=== PATIENT | female | born 1955 | race Two or more races ===

== ENCOUNTER 2024-10-04 18:06 | Emergency (ER) | payer OTHER ==
[~2024-10-04] VITALS: Ht 121.9 cm; Wt 54.4 kg
[2024-10-04] MEDS ORDERED: SODI14.12 TP (18:44)
[2024-10-04 21:02] VITALS: BP 149/92; TEMP 98; O2SAT 98
== END 2024-10-04 21:00 ==
LOC: ER 18:09
DX: R04.0 Epistaxis (principal); I10 Essential (primary) hypertension; E03.9 Hypothyroidism, unspecified; E78.00 Pure hypercholesterolemia, unspecified; Z86.16 Personal history of COVID-19; Z86.718 Personal history of other venous thrombosis and embolism

== ENCOUNTER 2024-12-30 12:52 | Emergency (ER) | payer OTHER ==
[~2024-12-30] VITALS: Ht 152.4 cm; Wt 56.7 kg
[~2024-12-30 12:52] MED LIST: SODI14.12 TP
[2024-12-30 17:04] VITALS: BP 143/94; TEMP 98.2; O2SAT 95
== END 2024-12-30 17:05 ==
LOC: ER 13:12
DX: S80.02XA Contusion of left knee, initial encounter (principal); S80.212A Abrasion, left knee, initial encounter; E03.9 Hypothyroidism, unspecified; E78.00 Pure hypercholesterolemia, unspecified; I10 Essential (primary) hypertension; Z86.16 Personal history of COVID-19; Z86.718 Personal history of other venous thrombosis and embolism; Z89.611 Acquired absence of right leg above knee; W22.8XXA Striking against or struck by other objects, initial encounter; Y93.89 Activity, other specified; Y92.89 Other specified places as the place of occurrence of the external cause; Y99.8 Other external cause status
CPT/HCPCS: 73564-TC; 73590-TC; 73610-TC